=== PATIENT | female | born 1990 | race African-American/Black ===

== ENCOUNTER 2024-12-30 02:31 | Emergency (ER) | payer MEDICAID, SELFPAY ==
[2024-12-30 07:15] LABS: BHCG - Serum Negative (NEGATIVE); Pregs Control Background? CLEAR/WHITE (CLR/WHITE); Pregs Control Bar Appear? YES (CONTROL BAR)
== END 2024-12-30 08:14 ==
LOC: EEVIPCON 02:31 → ERS 02:31
DX: R19.5 Other fecal abnormalities (principal)
CPT/HCPCS: 36415; 74176; 84703